=== PATIENT | female | born 1935 | race Caucasian/White ===

== ENCOUNTER 2017-02-14 19:56 | Emergency (ER) | payer MEDICARE, SELFPAY ==
--- NOTE | 2017-02-14 21:59 | RAD ---
CHEST ONE VIEW ABDOMEN TWO VIEWS: 02/14/17 HISTORY: Rectal prolapse. FINDINGS/IMPRESSION: The heart size is borderline. The lungs are well expanded without confluent areas of consolidation, pneumothorax, geo pulmonary edema, or pleural effusions. No free air or differential fluid levels are seen. the bowel gas pattern is unremarkable. There is fecal material in the colon. There are deg enerative changes in the spine. POS: [facility]
[2017-02-14 22:31] LABS: Bilirubin Negative (Negative); Blood, Urine Negative (Negative); Glucose, Urine (Dipstick) Negative (Negative); Ketone, Urine Negative (Negative); Nitrite Positive (Negative); Protein, Urine (Dipstick) Negative (Neg-Trace); Urobilinogen 0.2 mg/dL (0.2-1.0)
[2017-02-14 22:34] LABS: Bacteria/HPF 4+ HPF (None Seen); Hyaline Casts/LPF 0-3 HYALINE CAST LPF (0-3 Hyaline); RBC/HPF None Seen HPF (0-3); Squamous Epithelial 0-3 HPF (0-3); WBC/HPF 0-3 HPF (0-3)
[2017-02-14] MEDS ORDERED: cefTRIAXone\\ROCEPHIN 1 GM VIAL ONE (23:24)
[2017-02-14] MEDS ORDERED: Lidocaine 1% PF 5 ML VIAL ONE (23:24)
== END 2017-02-15 00:10 | disposition home or self-care (01) ==
LOC: ERS 19:56
DX: N39.0 Urinary tract infection, site not specified (principal); E11.9 Type 2 diabetes mellitus without complications; I10 Essential (primary) hypertension; Z86.73 Personal history of transient ischemic attack (TIA), and cerebral infarction without residual deficits; E78.00 Pure hypercholesterolemia, unspecified; F31.9 Bipolar disorder, unspecified; Z79.82 Long term (current) use of aspirin; Z79.899 Other long term (current) drug therapy
CPT/HCPCS: 51701; 74022; 81003; 81015; 87077; 87086; 87186; 96372; A4353; J0696; J2001

== ENCOUNTER 2017-05-23 09:36 | Emergency (ER) | payer MEDICARE, MEDICAID ==
[2017-05-23 10:21] LABS: #Lymphocytes 0.3 thou/uL (1.20-3.40); #Monocytes 0.4 thou/uL (0.11-0.59); #Neutrophils 10.5 thou/uL (1.40-6.50); %Eosinophils 0.2 % (0.0-10.0); %Lymphocytes 2.7 % (21.0-51.0); %Monocytes 3.2 % (0.0-10.0); %Neutrophils 93.9 % (42.0-75.0); Hemoglobin 13.6 g/dL (12.0-16.0); Mean Corpuscular HGB CONC 31.6 g/dL (32.0-36.0); Mean Corpuscular Hemoglobin 30.3 pg (27.0-31.0); Mean Corpuscular Volume 95.8 fl (81.0-99.0); Mean Platelet Volume 9.2 fL (7.4-10.4); Platelet Count 186 thou/uL (130-400); RBC Distribution Width 12.3 % (11.5-14.5); White Blood Cell (WBC) Count 11.1 thou/uL (4.8-10.8)
[2017-05-23 10:48] LABS: ALT (SGPT) 11 U/L (8-55); AST (SGOT) 13 U/L (5-34); Alkaline Phosphatase 74 U/L (40-150); Anion Gap 14 mmol/L (10-20); BUN (Urea Nitrogen) 32 mg/dL (9.8-20.1); Bilirubin, Total 0.5 mg/dL (0.2-1.2); CK (CPK) 12 U/L (29-168); Calc. Creatinine Clearance 0 mL/min (70-130); Calcium 10.4 mg/dL (7.8-10.44); Carbon Dioxide 21 mmol/L (23-31); Chloride 109 mmol/L (98-107); Estimated GFR-MDRD 35; Globulin 2.6 g/dL (2.4-3.5); Glucose 170 mg/dL (83-110); Lipase 6 U/L (8-78); Potassium 4.4 mmol/L (3.5-5.1); Protein, Total 6.6 g/dL (6.0-8.3); Sodium 140 mmol/L (136-145)
[2017-05-23 10:49] LABS: ALT (SGPT) 9 U/L (8-55); AST (SGOT) 16 U/L (5-34); Albumin 4.1 g/dL (3.4-4.8); Alkaline Phosphatase 76 U/L (40-150); Bilirubin, Direct 0.2 mg/dL (0.1-0.3); Bilirubin, Total 0.5 mg/dL (0.2-1.2); Protein, Total 6.5 g/dL (6.0-8.3)
[2017-05-23 10:53] LABS: CKMB 0.9 ng/mL (0-6.6); Troponin I Less than 0.010 ng/mL (< 0.028)
--- NOTE | 2017-05-23 11:19 | RAD ---
CHEST ONE VIEW: COMPARISON: 12/31/2016 and 02/14/2017 FINDINGS: Normal cardiac silhouette. Pulmonary vessels and hilum are normal. Costophrenic angles are clear. Chronic changes in the lung bases. The lungs are hyperinflated. No mass. No consolidation. No pne umothorax or osseous abnormalities. IMPRESSION: Hyperinflation. Chronic changes. POS: [facility]
--- NOTE | 2017-05-23 11:48 | CT ---
ABDOMEN CT WITH CONTRAST PELVIC CT WITH CONTRAST: Date: 05/23/17 HISTORY: Abdominal pain and vomiting. Evaluate for small bowel obstruction. COMPARISON: None. TECHNIQUE: Abdomen and pelvic CT are performed with IV contrast. Enteric contrast was not administered. Coronal reformatted images are submitted for interpretation. FINDINGS: ABDOMEN CT: Chronic changes in the lung bases are suspected. Heart size is normal. Calcification mitral annulus. Descending thoracic aorta and abdominal aorta have a normal caliber. No periaortic fat stranding. No gastrohepatic, retrocrural, or periportal lymphadenopathy. Intra and extrahepatic portal vein is patent. Symmetric attenuation of the psoas muscles. Symmetric enhancement of the kidneys. There is multifocal hypoattenuation throughout the kidneys whic h may represent small cyst. There are areas of scarring and renal cortical thinning involving both ki dneys. Bilaterally, no obstructive uropathy. No mesenteric mass, lymphadenopathy, free air, or free fluid. The liver, spleen, and adrenal glands have appropriate enhancement. There is atrophy of the pancreas. Limited evaluation of the alimentary canal due to lack of oral contrast. Small hiatal hernia noted. T here is no evidence of small bowel distention or dilatation. Ileocecal junction is normal. Fluid atte nuation in the colon. There is some fecal material in the distal sigmoid colon and rectum. There is m ild rectal prominence. Presacral fat is unremarkable. PELVIC CT: Adnexal structures and uterus are unremarkable. No pelvic mass, lymphadenopathy, free air, or free fl uid. Urinary bladder is unremarkable. IMPRESSION: 1. Renal atrophy and chronic changes of the kidneys. 2. No acute abnormality in the solid organs. 3. No evidence of bowel obstruction. Fluid attenuation in the right hemicolon. Correlate clinically . POS: [facility]
[2017-05-23] MEDS ORDERED: ISOVUE-370 76%-LOCM 1 ML ONE (13:58)
[2017-05-23 14:25] LABS: Bilirubin Negative (Negative); Blood, Urine Negative (Negative); Clarity CLOUDY (Clear); Glucose, Urine (Dipstick) Negative (Negative); Leukocyte Negative (Negative); Nitrite Negative (Negative); Protein, Urine (Dipstick) Negative (Neg-Trace); Specific Gravity, Urine 1.019 (1.002-1.036); Urobilinogen 0.2 mg/dL (0.2-1.0); pH, Urine 6.5 (5.0-9.0)
[2017-05-23 14:31] LABS: Bacteria/HPF 4+ HPF (None Seen); Hyaline Casts/LPF 0-3 HYALINE CAST LPF (0-3 Hyaline); Pathc Cast-AUWi Flag 0.13 (0-2.49); RBC/HPF None Seen HPF (0-3); Squamous Epithelial None Seen HPF (0-3); WBC/HPF 0-3 HPF (0-3)
--- NOTE | 2017-06-10 17:34 | EKG ---
Test Reason : Blood Pressure : / mmHG Vent. Rate : 091 BPM Atrial Rate : 091 BPM P-R Int : 186 ms QRS Dur : 090 ms QT Int : 362 ms P-R-T Axes : 076 014 080 degrees QTc Int : 445 ms Normal sinus rhythm Normal ECG Confirmed by CANDIDA FLORES ([id number]), acquisitions editor AZAM BARTHOLOMEW ([id number]) on 06/10/2017 5:33:48 PM Referred By: Confirmed By:CANDIDA FLORES
== END 2017-05-23 15:42 ==
LOC: ERS 09:36
DX: N30.90 Cystitis, unspecified without hematuria (principal); G30.9 Alzheimer's disease, unspecified; F02.80 Dementia in other diseases classified elsewhere, unspecified severity, without behavioral disturbance, psychotic disturbance, mood disturbance, and anxiety; E78.00 Pure hypercholesterolemia, unspecified; I10 Essential (primary) hypertension; E11.9 Type 2 diabetes mellitus without complications; F31.9 Bipolar disorder, unspecified; Z79.82 Long term (current) use of aspirin; Z86.73 Personal history of transient ischemic attack (TIA), and cerebral infarction without residual deficits; Z79.899 Other long term (current) drug therapy
CPT/HCPCS: 36415; 51702; 71045; 74177; 80053; 81003; 82150; 82550; 82553; 83605; 83690; 84484; 85025; 86850; 86900; 86901; 93005

== ENCOUNTER 2019-04-21 20:08 | Emergency (ER) | payer MEDICARE, MEDICAID ==
[2019-04-21 20:56] LABS: #Eosinphils 0.1 thou/uL (0.0-0.7); #Lymphocytes 1.2 thou/uL (1.20-3.40); #Monocytes 1.1 thou/uL (0.11-0.59); #Neutrophils 9.6 thou/uL (1.40-6.50); %Basophils 0.1 % (0.0-1.0); %Eosinophils 1.1 % (0.0-10.0); %Lymphocytes 9.9 % (21.0-51.0); %Monocytes 9.1 % (0.0-10.0); %Neutrophils 79.9 % (42.0-75.0); Hemoglobin 13.5 g/dL (12.0-16.0); Mean Corpuscular HGB CONC 34.2 g/dL (32.0-36.0); Mean Corpuscular Hemoglobin 32.1 pg (27.0-31.0); Mean Corpuscular Volume 93.8 fL (78.0-98.0); Mean Platelet Volume 9.5 fL (7.4-10.4); Platelet Count 193 thou/uL (130-400); RBC Distribution Width 11.9 % (11.5-14.5); White Blood Cell (WBC) Count 12.1 thou/uL (4.8-10.8)
[2019-04-21 21:13] LABS: Anion Gap 13 mmol/L (10-20); BUN (Urea Nitrogen) 30 mg/dL (9.8-20.1); Calc. Creatinine Clearance 0 mL/min (70-130); Carbon Dioxide 23 mmol/L (23-31); Chloride 105 mmol/L (98-107); Estimated GFR-MDRD 28; Glucose 157 mg/dL (83-110); Potassium 4.5 mmol/L (3.5-5.1); Sodium 136 mmol/L (136-145)
--- NOTE | 2019-04-21 21:19 | RAD ---
XR Chest 1 View Portable HISTORY: Leukocytosis. Cough. COMPARISON: 05/23/2017 study. FINDINGS: Heart size is within normal limits. Mediastinal structures are unremarkable. Lungs show chr onic change. The bones are demineralized. IMPRESSION: No active intrathoracic disease. Chronic lung change.
[2019-04-21 22:00] LABS: Bacteria/HPF 4+ HPF (None Seen); Bilirubin Negative (Negative); Blood, Urine Negative (Negative); Clarity Turbid (Clear); Glucose, Urine (Dipstick) Normal (Negative); Leukocyte 25 Leu/uL (Negative); Nitrite Negative (Negative); Protein, Urine (Dipstick) Negative (Neg-Trace); RBC/HPF 0-3 HPF (0-3); Squamous Epithelial 0-3 HPF (0-3); WBC/HPF 0-3 HPF (0-3)
[2019-04-21 22:02] LABS: Unclassified Crystals Rare HPF (None Seen)
[2019-04-21] MEDS ORDERED: cefTRIAXone\\ROCEPHIN 1 GM VIAL ONE (22:38)
--- NOTE | 2019-04-23 14:25 | EKG ---
Test Reason : Blood Pressure : / mmHG Vent. Rate : 065 BPM Atrial Rate : 065 BPM P-R Int : 198 ms QRS Dur : 086 ms QT Int : 390 ms P-R-T Axes : 076 003 049 degrees QTc Int : 405 ms Normal sinus rhythm Normal ECG Confirmed by JEFFERY GUERRA MD ([id number]), magazine editor FREDIS AMARO ([id number]) on 04/23/2019 2:25:10 PM Referred By: Confirmed By:JEFFERY GUERRA MD
== END 2019-04-21 23:21 ==
LOC: ERS 20:08
DX: N39.0 Urinary tract infection, site not specified (principal); E11.9 Type 2 diabetes mellitus without complications; I10 Essential (primary) hypertension; Z79.899 Other long term (current) drug therapy
CPT/HCPCS: 36415; 51701; 71045; 80048; 81003; 81015; 83605; 85025; 87040; 87077; 87086; 87149; 93005; 96374; A4353; J0696

== ENCOUNTER 2019-06-26 09:56 | Inpatient (IN) | payer MEDICARE, MEDICAID ==
[2019-06-26 10:29] LABS: Bacteria/HPF 4+ HPF (None Seen); Bilirubin Negative (Negative); Blood, Urine Negative (Negative); Clarity Turbid (Clear); Glucose, Urine (Dipstick) 100 mg/dL (Negative); Leukocyte Negative Leu/uL (Negative); Nitrite 2+ (Negative); Protein, Urine (Dipstick) 10 mg/dL (Neg-Trace); RBC/HPF None Seen HPF (0-3); Squamous Epithelial 0-3 HPF (0-3); Urobilinogen Normal mg/dL (Less than 2); WBC/HPF 0-3 HPF (0-3)
--- NOTE | 2019-06-26 10:42 | RAD ---
XR Chest 1 View Portable History: Altered mental status Comparison: Radiograph April 21, 2019 Findings: Mild elevation left hemidiaphragm. Left lower lobe consolidation with air bronchogram. Righ t lung relatively clear. No pneumothorax. No acute osseous abnormality. Impression: Findings of left lower lobe pneumonia. Follow-up after treatment recommended.
[2019-06-26] MEDS ORDERED: Cefepime 2 GM VIAL ONE (10:53)
[2019-06-26 10:59] LABS: Hemoglobin 12.6 g/dL (12.0-16.0); Mean Corpuscular HGB CONC 33.5 g/dL (32.0-36.0); Mean Corpuscular Hemoglobin 31.6 pg (27.0-31.0); Mean Corpuscular Volume 94.2 fL (78.0-98.0); Mean Platelet Volume 11.8 fL (7.4-10.4); Platelet Count 132 thou/uL (130-400); RBC Distribution Width 12.4 % (11.5-14.5); Red Blood Cell (RBC) Count 3.98 mill/uL (4.20-5.40); White Blood Cell (WBC) Count 15.9 thou/uL (4.8-10.8)
[2019-06-26 11:02] LABS: ALT (SGPT) 12 U/L (8-55); AST (SGOT) 19 U/L (5-34); Albumin 3.5 g/dL (3.4-4.8); Alkaline Phosphatase 59 U/L (40-110); Anion Gap 12 mmol/L (10-20); BUN (Urea Nitrogen) 32 mg/dL (9.8-20.1); Bilirubin, Total 0.7 mg/dL (0.2-1.2); Calc. Creatinine Clearance 0 mL/min (70-130); Calcium 10.1 mg/dL (7.8-10.44); Carbon Dioxide 22 mmol/L (23-31); Chloride 105 mmol/L (98-107); Estimated GFR-MDRD 25; Globulin 2.8 g/dL (2.4-3.5); Glucose 228 mg/dL (83-110); Potassium 4.8 mmol/L (3.5-5.1); Protein, Total 6.3 g/dL (6.0-8.3); Sodium 134 mmol/L (136-145)
[2019-06-26 11:13] LABS: Band 53 % (5-11); Lymphocytes 12 % (21-51); MDiff Complete? YES; Metamyelocyte 4 % (0-0); Monocytes 1 % (0-10); Myelocyte 1 % (0-0); Neutrophil 27 % (42-75); Platelet Morphology Comment Appears Adequate; Polychromasia SLIGHT = 2-3 cells (100X) (0-2/hpf); Reactive Lymphocytes 2 % (0-10); Reflex for Review?? YES; Vacuoles SLIGHT
--- NOTE | 2019-06-26 11:14 | CT ---
CT OF THE BRAIN WITHOUT CONTRAST: Date: 06/26/2019 COMPARISON: 12/31/16. HISTORY: Alzheimer's disease with altered mental status. TECHNIQUE: Multiple contiguous axial images were obtained in a CT of the brain without contrast. FINDINGS: There are scattered hypodensities in the subcortical and periventricular white matter, likely seconda ry to small vessel ischemic disease. No large confluent infarction is seen. There is no evidence of h ydrocephalus, intracranial hemorrhage, or extra-axial fluid collection. The calvarium and overlying soft tissues are unremarkable. The visualized paranasal sinuses and masto id air cells are well aerated. IMPRESSION: No evidence of acute intracranial abnormality. POS: [facility]
[2019-06-26 11:23] LABS: Actual Bicarbonate (HCO3a) 15.3 mEq/L (22-28); Analyzer IN Cardio ER; Base Excess (BEa) -7.8 mEq/L (-2.0 to +3.0); Carboxyhemoglobin (COHb) 1.1 gm% (0.0-3.0); Hemoglobin (Hb) 12.1 g/dL (12.0-16.0); O2 Tension (PaO2) 65.3 mmHg (> 60.0); Potassium - ABG Lab 4.17 mmol/L (3.70-5.30)
[2019-06-26 11:25] LABS: CO2 Tension 25.1 mmHg (35.0-45.0)
[2019-06-26 11:26] LABS: ALV-art Gradient 102.965 (0-20); Puncture Site RRA
[2019-06-26 11:30] LABS: Magnesium 2.1 mg/dL (1.6-2.6)
[2019-06-26 15:38] VITALS: BMI 24.7
[2019-06-26] MEDS: Sodium Chloride 0.9% 1,000 ML IV SCH (17:45)
[2019-06-26] MEDS ORDERED: Acetaminophen ER (8hr) 650 MG TAB PO PRN (20:56)
[2019-06-26] MEDS ORDERED: Milk Of Magnesia 30 ML UDCUP PO PRN (20:56)
[2019-06-26] MEDS ORDERED: Polyethylene Glycol 3350 17 GM Packet PO PRN (20:57)
[2019-06-26] MEDS: Cefepime 1 GM in Sodium Chloride 0.9% 100 ML IVPB SCH (23:06)
[2019-06-26] MEDS: Acetaminophen 325 MG TAB PO PRN (23:07)
[2019-06-26] MEDS: Senokot S 8.6-50 MG TAB PO SCH (23:07)
[2019-06-27 05:47] LABS: #Eosinphils 0.2 thou/uL (0.0-0.7); #Lymphocytes 1.7 thou/uL (1.20-3.40); #Monocytes 0.7 thou/uL (0.11-0.59); #Neutrophils 8.8 thou/uL (1.40-6.50); %Basophils 0.3 % (0.0-1.0); %Eosinophils 2.1 % (0.0-10.0); %Lymphocytes 14.5 % (21.0-51.0); %Monocytes 6.1 % (0.0-10.0); Hemoglobin 10.8 g/dL (12.0-16.0); Mean Corpuscular HGB CONC 33.1 g/dL (32.0-36.0); Mean Corpuscular Hemoglobin 31.4 pg (27.0-31.0); Mean Corpuscular Volume 94.9 fL (78.0-98.0); Mean Platelet Volume 10.3 fL (7.4-10.4); Platelet Count 161 thou/uL (130-400); RBC Distribution Width 12.3 % (11.5-14.5); Red Blood Cell (RBC) Count 3.43 mill/uL (4.20-5.40); White Blood Cell (WBC) Count 11.4 thou/uL (4.8-10.8)
[2019-06-27 06:04] LABS: Anion Gap 10 mmol/L (10-20); BUN (Urea Nitrogen) 27 mg/dL (9.8-20.1); Calc. Creatinine Clearance 27 mL/min (70-130); Calcium 9.5 mg/dL (7.8-10.44); Carbon Dioxide 19 mmol/L (23-31); Chloride 112 mmol/L (98-107); Estimated GFR-MDRD 31; Glucose 174 mg/dL (83-110); Potassium 3.9 mmol/L (3.5-5.1); Sodium 137 mmol/L (136-145)
[2019-06-27] MEDS: Senokot S 8.6-50 MG TAB PO SCH ×2 (08:49→20:35)
[2019-06-27] MEDS: Amlodipine 5 MG TAB PO SCH (08:49)
[2019-06-27] MEDS: Losartan 25 MG TAB PO SCH (08:49)
[2019-06-27] MEDS: Aspirin Chewable 81 MG TAB PO SCH (08:51)
[2019-06-27] MEDS: Enoxaparin Sodium 30 MG/0.3 ML SYRINGE SC SCH (08:51)
[2019-06-27 11:20] LABS: Vancomycin, Random 9.5 ug/mL (See Comment)
[2019-06-27] MEDS: Cefepime 1 GM in Sodium Chloride 0.9% 100 ML IVPB SCH (11:48)
[2019-06-27] MEDS: Sodium Chloride 0.9% 1,000 ML IV SCH (11:50)
[2019-06-27] MEDS ORDERED: Vancomycin HCl 1 GM in Premix Bag 1 BAG IVPB SCH (12:00)
--- NOTE | 2019-06-27 12:24 | HP ---
Encounter date: 06/26/19 CHIEF COMPLAINT: Altered mental status. HISTORY OF PRESENT ILLNESS: This patient is an 84-year-old female with history of some Alzheimer's disease. The patient lives at the [facility] and apparently was noted to have some altered mentation and EMS was dispatched. The patient had a history of prior UTIs with some altered mental status and that was the initial concern. The patient is somewhat cognizant, however, has very delayed speech and some expressive aphasia making the history taking profoundly difficult. Otherwise, the patient was seen in the emergency department, where her evaluation was consistent with a pneumonia. REVIEW OF SYSTEMS: The best information I get from the patient, she seems to feel like she is having some persistent problems with constipation. Otherwise, I cannot get a detailed review of systems. PAST MEDICAL HISTORY: Primarily based on the patient's records indicate hypertension, dyslipidemia, type 2 diabetes, history of prior CVA with the expressive aphasia. PAST SURGICAL HISTORY: None. SOCIAL HISTORY: The patient lives at the [facility]. No history of alcohol , tobacco, or drugs. FAMILY HISTORY: Apparently, negative for coronary artery disease, stroke, or cancer. ALLERGIES: NONE. HOME MEDICATIONS: 1. Aspirin 81 mg daily. 2. Tylenol p.r.n. 3. Senokot S one p.o. b.i.d. 4. Milk of magnesia 30 mL daily. 5. Amlodipine 2.5 mg daily. 6. Losartan 25 mg daily. 7. [place] 150 mg daily. PHYSICAL EXAMINATION: VITAL SIGNS: Initial vitals in the hospital; temperature is 99.3, pulse 79, respirations 20, O2 saturation 98% on 2 L, and blood pressure 124/45. GENERAL APPEARANCE: Age-appropriate female, who is very pleasant. She is in no acute distress. She is lying supine in the bed. She is able to answer questions and seems to be generally appropriate, although she struggles to speak. She seems to be generally profoundly weak. HEENT: PERRL. No OP lesions. NECK: Supple and symmetric. HEART: Regular rate and rhythm without murmurs, gallops, or rubs. LUNGS: Clear to auscultation bilaterally with good chest wall expansion and air exchange. ABDOMEN: Soft and nondistended. Slightly tender in the left lower quadrant with no guarding, no rebound, and no masses. No hepatosplenomegaly. EXTREMITIES: No cyanosis or clubbing. No edema. Pulses are present and symmetric. SKIN: Warm and dry. PSYCH: Normal affect and behavior. NEURO: Again, the patient appears to be generally profoundly weak. She appears to have some reduced function in her hands, more so on the left. LABORATORY DATA: White count 11.4, hemoglobin 10.8, and platelets 161. ABG; pH is 7.4, pCO2 is 25, and pO2 is 65. Sodium 134, potassium 4.8, chloride 105, CO2 is 22, BUN 32, creatinine is 1.9, glucose 228, lactic acid 2.7, calcium 10.1, and magnesium 2.1. LFTs normal. TSH 1.46. Urinalysis with 2+ nitrites, 0 to 3 white cells, no red cells. IMAGING DATA: Chest x-ray shows left lower lobe pneumonia. Brain CT negative. IMPRESSION AND PLAN: 1. Acute metabolic encephalopathy likely secondary to underlying pneumonia. 2. Left lower lobe pneumonia, cover with healthcare-acquired pneumonia with vancomycin and cefepime. Supplemental oxygen if needed. 3. Acute hypoxic respiratory failure. The patient has been on 2 L of oxygen. We will attempt to wean her off that as the pneumonia improves. 4. Expressive aphasia secondary to prior cerebrovascular accident. 5. Hypertension. Continue with her usual home regimen. 6. Constipation. We will continue with the stool softeners and add some p.r.n. cathartics. 7. Dyslipidemia, stable. 8. History of anxiety and depression and bipolar disorder. Continue with her lithium. 9. We will need to pursue code status better. We will ask the Palliative Care Team to assist with that. 10. 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 Very slightly below baseline GFR. Continue to monitor with IVF. Job ID: [id number] [facility]
[2019-06-27] MEDS: Acetaminophen 325 MG TAB PO PRN (18:17)
--- NOTE | 2019-06-27 21:41 | PDOC.HOSPP ---
- Subjective Encounter Date: 06/27/19 Subjective: Indicates she has felt ok. Does not verbalize much. Smiles. - Objective Vital Signs & Weight: Vital Signs (12 hours) Temp Pulse Resp BP Pulse Ox 06/27/19 19:39 98.7 F 81 18 135/71 96 06/27/19 16:00 100.2 F H 81 20 136/87 96 06/27/19 12:00 99.6 F 72 20 136/69 97 Weight Weight 139 lb 8 oz I&O: 06/26/19 06/27/19 06/28/19 06:59 06:59 06:59 Intake Total 950 1355 Balance 950 1355 Result Diagrams: 06/27/19 05:27 06/27/19 05:27 Additional Labs: Accuchecks 06/27/19 05:55 POC Glucose 188 H Hospitalist ROS - Medication Medications: Active Medications Generic Name Dose Route Start Last Admin Trade Name Freq PRN Reason Stop Dose Admin Acetaminophen 650 mg 06/26/19 16:23 06/27/19 18:17 Tylenol PO 650 mg Q4H PRN Administration Headache/Fever/Mild Pain (1-3) Amlodipine Besylate 2.5 mg 06/27/19 09:00 06/27/19 08:49 Norvasc PO 2.5 mg DAILY FRANCO Administration Aspirin 81 mg 06/27/19 09:00 06/27/19 08:51 Aspirin Chewable PO 81 mg DAILY FRANCO Administration Enoxaparin Sodium 30 mg 06/27/19 09:00 06/27/19 08:51 Lovenox SC 30 mg 0900 FRANCO Administration Sodium Chloride 1,000 mls @ 50 mls/hr 06/26/19 16:30 06/27/19 11:50 Normal Saline 0.9% IV 1,000 mls .Q20H FRANCO Administration Cefepime HCl 1 gm/ Sodium 100 mls @ 200 mls/hr 06/26/19 23:00 06/27/19 11:48 Chloride IVPB 100 mls 1100,2300 FRANCO Administration Losartan Potassium 25 mg 06/27/19 09:00 06/27/19 08:49 Cozaar PO 25 mg DAILY FRANCO Administration Senna/Docusate Sodium 1 tab 06/26/19 21:00 06/27/19 20:35 Senokot S PO 1 tab BID FRANCO Administration - Exam Heart: RRR, no murmur, no gallops, no rubs, normal peripheral pulses Respiratory: CTAB, no wheezes, no rales, no ronchi, normal chest expansion, no tachypnea, normal percussion Gastrointestinal: soft, non-tender, non-distended, normal bowel sounds, no palpable masses, no hepatomegaly, no splenomegaly, no bruit Extremities: no cyanosis, no clubbing, no edema Skin: normal turgor, no lesions, no rashes Neurological: cranial nerve grossly intact Neurological - other findings: Expressive aphasia. Musculoskeletal: generalized weakness, diffuse muscle atrophy Psychiatric: normal affect Hosp A/P (1) Pneumonia Code(s): J18.9 - PNEUMONIA, UNSPECIFIED ORGANISM Status: Acute (2) CKD (chronic kidney disease), stage III Code(s): N18.3 - CHRONIC KIDNEY DISEASE, STAGE 3 (MODERATE) Status: Acute (3) Anxiety and depression Code(s): F41.8 - OTHER SPECIFIED ANXIETY DISORDERS Status: Chronic (4) Bipolar disorder Code(s): F31.9 - BIPOLAR DISORDER, UNSPECIFIED Status: Chronic (5) Dyslipidemia Code(s): E78.5 - HYPERLIPIDEMIA, UNSPECIFIED Status: Chronic (6) Expressive aphasia Code(s): R47.01 - APHASIA Status: Chronic (7) H/O: CVA (cerebrovascular accident) Code(s): Z86.73 - PRSNL HX OF TIA (TIA), AND CEREB INFRC W/O RESID DEFICITS Status: Chronic (8) Hypertension Code(s): I10 - ESSENTIAL (PRIMARY) HYPERTENSION Status: Chronic - Plan Appears to be doing well. Continue IV abx and follow cultures. No respiratory compromise. Nursing clarified with patient's daughter that she is DNAR as she has been in the past. Renal function stable. BP is ok.
[2019-06-28] MEDS: Cefepime 1 GM in Sodium Chloride 0.9% 100 ML IVPB SCH ×3 (00:05→23:49)
[2019-06-28] MEDS ORDERED: Lithium Carbonate 150 MG CAP PO SCH (09:00)
[2019-06-28] MEDS: Senokot S 8.6-50 MG TAB PO SCH ×2 (09:37→20:30)
[2019-06-28] MEDS: Amlodipine 5 MG TAB PO SCH (09:38)
[2019-06-28] MEDS: Losartan 25 MG TAB PO SCH (09:38)
[2019-06-28] MEDS: Aspirin Chewable 81 MG TAB PO SCH (09:38)
[2019-06-28] MEDS: Enoxaparin Sodium 30 MG/0.3 ML SYRINGE SC SCH (09:39)
[2019-06-28] MEDS: Sodium Chloride 0.9% 1,000 ML IV SCH (09:40)
[2019-06-28 12:27] LABS: Vancomycin, Random 14.1 ug/mL (See Comment)
[2019-06-28] MEDS ORDERED: Vancomycin HCl 1 GM in Premix Bag 1 BAG IVPB SCH (12:45)
--- NOTE | 2019-06-28 16:12 | PQF ---
CLINICAL DOCUMENTATION IMPROVEMENT CLARIFICATION FORM: ICD-10 Updated PLEASE DO AN ADDENDUM TO THE PROGRESS NOTE WITH ANY DOCUMENTATION UPDATES OR ADDITIONS AND CARRY THROUGH TO DC SUMMARY. THANK YOU. DATE: 06/28/2019 ATTN: Dr. Vo Please exercise your independent, professional judgment in responding to the clarification form. Clinical indicators are provided on the bottom of this form for your review Please check appropriate box(es): [ ] Sepsis due to pneumonia. [ ] Sepsis not due to pneumonia. [ ] Sepsis due to other. [ ] Severe sepsis with acute organ dysfunction of: (Examples: respiratory failure, encephalopathy, acute kidney failure, other) [ ] Localized infection without sepsis [ ] Other diagnosis [ ] Unable to determine In addition, please specify: Present on Admission (POA): [ ] Yes [ ] No [ ] Unable to determine For continuity of documentation, please document condition throughout progress notes and discharge summary. Thank You. CLINICAL INDICATORS - SIGNS / SYMPTOMS / LABS / RESULTS AND LOCATION IN MR ER RECORD 06/26: EMS reports pt was confused and had an altered mental status w / fever. VS: BP 123/89, Pulse 84, Resp. 32. Temp. 100.6 Diagnosis: Pneumonia JORGE L, Lactic acidosis, Sepsis H&P 06/26: LAB: White count 11.4 lactic acid 2.7 Chest x-ray shows left Lower Lobe pneumonia. Impression: Acute Metabolic Encephalopathy likely secondary to underlying penumonia. Acute hypoxic respiratory failure. 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 HTN. DM 2. Impression: Acute metabolic encephalopathy likely secondary to underlying pnumonia. TREATMENT: MAR: Order 06/26: Vancomycin HCl 1 gm IV MAR: Order 06/26: Cefepime 1 gm IV 1100, 2300 Thank you, Gevoanna (This form is maintained as a part of the permanent medical record) 2015 [employer] All Rights Reserved Geovanna Jurado RN, BSN [email or web address] Office: [phone] [facility]
--- NOTE | 2019-06-28 21:47 | PDOC.HOSPP ---
- Subjective Encounter Date: 06/28/19 Subjective: Speaks very little, but smiles nicely and denies any problems. - Objective Vital Signs & Weight: Vital Signs (12 hours) Temp Pulse Resp BP Pulse Ox 06/28/19 19:58 99.9 F H 66 20 157/75 H 93 L 06/28/19 17:43 153/91 H 06/28/19 16:48 99.3 F 81 16 161/89 H 94 L 06/28/19 11:37 98.3 F 79 16 172/78 H 94 L Weight Weight 139 lb 8 oz I&O: 06/27/19 06/28/19 06/29/19 06:59 06:59 06:59 Intake Total 950 2380 980 Balance 950 2380 980 Result Diagrams: 06/27/19 05:27 06/27/19 05:27 Hospitalist ROS - Medication Medications: Active Medications Generic Name Dose Route Start Last Admin Trade Name Freq PRN Reason Stop Dose Admin Acetaminophen 650 mg 06/26/19 16:23 06/27/19 18:17 Tylenol PO 650 mg Q4H PRN Administration Headache/Fever/Mild Pain (1-3) Amlodipine Besylate 2.5 mg 06/27/19 09:00 06/28/19 09:38 Norvasc PO 2.5 mg DAILY FRANCO Administration Aspirin 81 mg 06/27/19 09:00 06/28/19 09:38 Aspirin Chewable PO 81 mg DAILY FRANCO Administration Enoxaparin Sodium 30 mg 06/27/19 09:00 06/28/19 09:39 Lovenox SC 30 mg 0900 FRANCO Administration Sodium Chloride 1,000 mls @ 50 mls/hr 06/26/19 16:30 06/28/19 09:40 Normal Saline 0.9% IV 1,000 mls .Q20H FRANCO Administration Cefepime HCl 1 gm/ Sodium 100 mls @ 200 mls/hr 06/26/19 23:00 06/28/19 12:24 Chloride IVPB 100 mls 1100,2300 FRANCO Administration [place] Carbonate 150 mg 06/28/19 09:00 06/28/19 09:54 [place] Carbonate PO 150 mg Q2D FRANCO Administration Losartan Potassium 25 mg 06/27/19 09:00 06/28/19 09:38 Cozaar PO 25 mg DAILY FRANCO Administration Senna/Docusate Sodium 1 tab 06/26/19 21:00 06/28/19 20:30 Senokot S PO 1 tab BID FRANCO Administration Hosp A/P (1) Pneumonia Code(s): J18.9 - PNEUMONIA, UNSPECIFIED ORGANISM Status: Acute (2) CKD (chronic kidney disease), stage III Code(s): N18.3 - CHRONIC KIDNEY DISEASE, STAGE 3 (MODERATE) Status: Acute (3) Anxiety and depression Code(s): F41.8 - OTHER SPECIFIED ANXIETY DISORDERS Status: Chronic (4) Bipolar disorder Code(s): F31.9 - BIPOLAR DISORDER, UNSPECIFIED Status: Chronic (5) Dyslipidemia Code(s): E78.5 - HYPERLIPIDEMIA, UNSPECIFIED Status: Chronic (6) Expressive aphasia Code(s): R47.01 - APHASIA Status: Chronic (7) H/O: CVA (cerebrovascular accident) Code(s): Z86.73 - PRSNL HX OF TIA (TIA), AND CEREB INFRC W/O RESID DEFICITS Status: Chronic (8) Hypertension Code(s): I10 - ESSENTIAL (PRIMARY) HYPERTENSION Status: Chronic (9) Sepsis Code(s): A41.9 - SEPSIS, UNSPECIFIED ORGANISM Status: Acute - Plan Sepsis due to pneumonia. Appears to be doing well. Continue IV abx and follow cultures. So far blood cultures appear to show a contaminant. No respiratory compromise. Renal function stable. BP is ok. If she remains afebrile, feels ok and cultures are negative, can likely discharge tomorrow.
[2019-06-29] MEDS: Sodium Chloride 0.9% 1,000 ML IV SCH (08:46)
[2019-06-29] MEDS: Aspirin Chewable 81 MG TAB PO SCH (08:47)
[2019-06-29] MEDS: Amlodipine 5 MG TAB PO SCH (08:47)
[2019-06-29] MEDS: Losartan 25 MG TAB PO SCH (08:48)
[2019-06-29] MEDS: Senokot S 8.6-50 MG TAB PO SCH (08:48)
[2019-06-29] MEDS: Enoxaparin Sodium 30 MG/0.3 ML SYRINGE SC SCH (08:48)
[2019-06-29] MEDS: Cefepime 1 GM in Sodium Chloride 0.9% 100 ML IVPB SCH (11:35)
[2019-06-29 12:24] LABS: Vancomycin, Random 17.4 ug/mL (See Comment)
[2019-06-29] MEDS ORDERED: Vancomycin HCl 1 GM in Premix Bag 1 BAG IVPB SCH (13:00)
[2019-06-29 17:44] VITALS: BP 154/87; TEMP 99.6
--- NOTE | 2019-07-01 05:03 | DIS ---
DATE OF ADMISSION: 06/26/2019 DATE OF DISCHARGE: 06/29/2019 HOSPITAL COURSE: Ms. Jordan is an 84-year-old female with a medical history of recurrent UTIs, type 2 diabetes, CVA with expressive aphasia, and dementia who presented for drowsiness. The patient was diagnosed with community-acquired pneumonia and complicated urinary tract infection. She was treated with broad-spectrum antibiotics initially as an inpatient and then was transitioned to oral antibiotics after susceptibilities returned. She improved throughout her inpatient stay, and on the day of discharge was hemodynamically stable and at baseline mental state. PHYSICAL EXAMINATION: VITAL SIGNS: On the day of discharge, vitals were unremarkable. GENERAL: She is in no apparent distress, lying comfortably in bed. Able to answer question, though had struggle speaking. HEART: Regular rate and rhythm without murmurs, gallops, or rubs. LUNGS: Clear to auscultation bilaterally with no wheezing, rales, or rhonchi. ABDOMEN: Soft and nondistended. Normal bowel sounds. EXTREMITIES: No cyanosis or clubbing. No edema. PSYCHIATRIC: Flat affect. Normal behavior. Alert. Difficult to assess if oriented due to expressive aphasia. NEUROLOGIC: Appears generally weak and deconditioned. IMPRESSION AND PLAN: Ms. Jordan is an 84-year-old female who presented with acute infectious encephalopathy due to community-acquired pneumonia and complicated urinary tract infection. She was initially treated with IV antibiotics and progressively improved. After culture susceptibilities, she was transitioned to oral antibiotics and discharged back to [facility]. Followup appointments with her primary care physician within a week. Job ID: [id number]
== END 2019-06-29 18:40 | DRG 871 ==
LOC: ERS 09:56 → T4-A 15:13
PROVIDERS: ADMIT Internal Medicine; ATTEND Internal Medicine
DX: A41.9 Sepsis, unspecified organism (principal); J18.9 Pneumonia, unspecified organism; G93.41 Metabolic encephalopathy; J96.01 Acute respiratory failure with hypoxia; N39.0 Urinary tract infection, site not specified; F31.81 Bipolar II disorder; E87.2 Acidosis; N17.9 Acute kidney failure, unspecified; I12.9 Hypertensive chronic kidney disease with stage 1 through stage 4 chronic kidney disease, or unspecified chronic kidney disease; Z66 Do not resuscitate; E11.22 Type 2 diabetes mellitus with diabetic chronic kidney disease; G30.9 Alzheimer's disease, unspecified; K59.00 Constipation, unspecified; E78.5 Hyperlipidemia, unspecified; F41.9 Anxiety disorder, unspecified; N18.3 Chronic kidney disease, stage 3 (moderate); L89.151 Pressure ulcer of sacral region, stage 1; E78.00 Pure hypercholesterolemia, unspecified; F02.80 Dementia in other diseases classified elsewhere, unspecified severity, without behavioral disturbance, psychotic disturbance, mood disturbance, and anxiety; Z87.440 Personal history of urinary (tract) infections; I69.320 Aphasia following cerebral infarction
CPT/HCPCS: 36415; 36416; 51701; 70450; 71045; 80048; 80053; 80202; 81003; 81015; 82550; 82805; 83605; 83735; 84443; 84484; 85025; 85060; 87040; 87077; 87086; 87186; 93005; 96365; 96367; A4353; J0692; J1650; J3370; J3490